=== PATIENT | male | born 1970 | race African-American/Black ===

== ENCOUNTER → 2022-07-29 | Day surgery (SDC) | payer BC ==
[2022-07-22 11:45] LABS: ANION GAP 13.2 mmol/L (8-16); CREATININE, SERUM 1.06 mg/dL (0.72-1.25); POTASSIUM 4.2 mmol/L (3.5-5.1)
[~2022-07-29] MED LIST: AMLODIPINE BESY10 MG PO; BUPIVACAINE HCL 0.5% INJ 30 ML VIAL INJ ONE; CALCIUM ACETAT667 MG PO; CEFAZOLIN SODIUM 2 GM ONE; CRESTOR10 MG PO; DEXAMETHASONE SOD PHOS INJ 4 MG/ML SDV ONE; EPHEDRINE SULFATE INJ 50 MG/ML VIAL ONE; FENTANYL CITRATE/PF 100MCG/2 ML INJ ONE; FEROSUL325 MG PO; LIDOCAINE HCL 2% LOCAL INJ 5 ML SDV VIAL INJ ONE; MIDAZOLAM HCL 2 MG/2 ML VIAL ONE; MUPIROCIN 2% OINT 22 GM TUBE ONE; NEOSTIGMINE 1 MG/ML 10ML VIAL ONE; ONDANSETRON HCL INJ 2MG/ML 2ML 2 MG/ML VIAL ONE; ONE DAILY MEN'1 EACH; POVIDONE IODINE 0.05% 0.05 % ML PO ONE; PRILOSEC OTC20 MG PO; PROPOFOL IV EMULSION 10 MG/ML 20 ML VIAL ONE; SEVOFLURANE INHAL SOLN 250 ML PEN BTL ONE
[2022-07-29 14:30] VITALS: BP 130/81
== END | disposition home or self-care (01) ==
LOC: OR 09:51
PROVIDERS: ATTEND Podiatrist Foot & Ankle Surgery
DX: M20.11 Hallux valgus (acquired), right foot (principal); M77.51 Other enthesopathy of right foot and ankle; I10 Essential (primary) hypertension; Z01.810 Encounter for preprocedural cardiovascular examination; Z01.812 Encounter for preprocedural laboratory examination; Z79.899 Other long term (current) drug therapy
CPT/HCPCS: 28296; 36415; 80048; 93005; C1713 ×2; J1100; J2001; J2250; J2405; J2704; J3010; 76000; J2710